=== PATIENT | male | born 1965 | race American Indian/Alaskan Native ===

== ENCOUNTER 2019-08-03 08:19 | Day surgery (SDC) | payer BC ==
[~2019-08-03 08:19] MED LIST: WATER FOR IRRIG STERILE 250 ML BOTTLE IR ONE
[2019-08-03] MEDS ORDERED: SODIUM CHLORIDE 0.9% 1000 ML 1,000 ML IV SCH (08:30)
[2019-08-03] MEDS ORDERED: PROPOFOL 200 MG/20 ML VIAL IV ONE ×2 (08:48→09:25)
--- NOTE | 2019-08-03 08:48 | Anesthesia Day of Surgery ---
Anesthesia Day of Surgery - Day of Surgery Patient Examined: Yes Patient H&P Reviewed: Yes Patient is NPO: Yes
--- NOTE | 2019-08-03 08:48 | Anesthesia Consultation ---
Anesthesia Consult and Med Hx Date of service: 08/03/19 - Airway Anesthetic Teeth Evaluation: Good ROM Head & Neck: Adequate Mental/Hyoid Distance: Adequate Mallampati Class: Class I Intubation Access Assessment: Probably Good - Pulmonary Exam CTA: Yes - Cardiac Exam Cardiac Exam: RRR - Pre-Operative Health Status ASA Pre-Surgery Classification: ASA2 Proposed Anesthetic Plan: MAC - Pulmonary Hx Smoking: No Hx Respiratory Symptoms: No - Cardiovascular System Hx Hypertension: Yes (took amlodipine this morning) - Central Nervous System CVA: No - Endocrine Hx Renal Disease: No Hx Liver Disease: No Hx Insulin Dependent Diabetes: No Hx Non-Insulin Dependent Diabetes: No Hx Thyroid Disease: No
--- NOTE | 2019-08-03 09:22 | Procedure Note ---
Date of procedure: 08/03/19 Pre-op diagnosis: Colon Polyp Screening/P/H/O Colon Polyp (Tubular Adenoma- Proximal transvers Post-op diagnosis: other (Minor,Left Colon Diverticuli/ Small,Cecal Polyp vs Adenoma) Procedure: Colonoscopy with Biopsy Anesthesia: MAC Surgeon: RAMIRO CASTILLO Estimated blood loss: minimal Pathology: list Specimen disposition: to lab Condition: stable Disposition: same day (Avoid aspirin and NSAID for 4 days; otherwise resume home medication. Follow up in 1 to 2 weeks ([phone]).)
[2019-08-03 09:35] VITALS: BP 112/66
--- NOTE | 2019-08-03 10:44 | Operative Report ---
PROCEDURE: Colonoscopy. INDICATIONS: The patient is a 54-year-old -[place] gentleman who has a prior history of a colon polyp of the tubular adenoma type from a colonoscopy done a few years ago, which was in the proximal transverse colon. Repeat colonoscopy was done to make sure there was not any recurrence of any polyps. DESCRIPTION OF PROCEDURE: Procedure was done after getting informed consent with MAC anesthesia. Initial rectal exam was unremarkable. Instrument was passed through the rectum onto the cecum, which was identified with ileocecal valve and the appendiceal orifice. In the cecum, there were 2 small raised areas noted, which may have been a lipoma versus an adenoma. Biopsy was done from one of these areas, all the area flattened out with insufflation. There was minimal bleeding from the biopsy sites and no complications associated with the biopsy. The remaining part of the cecum, ascending colon and transverse colon showed normal mucosa. There were a few minor diverticula noted in the left colon and the rectum appeared normal on the retroverted view. ASSESSMENT: Colon polyp screening, past history of colon polyp of the tubular adenoma type involving the proximal transverse colon, minor diverticula, small cecal lipoma versus adenoma with minimal bleeding from the biopsy sites and no complications associated with the procedure. Procedure was done in the GI lab with assistance of the GI lab team, which included RN, Concepcion Interiano, with the assistance of the water quality technician and also with the assistance of anesthesia. Again, there was minimal bleeding associated with polypectomy done from either a lipoma or an adenoma in the cecum. The patient will be asked to avoid aspirin and aspirin-related products for the next few days. Encouraged to take fiber supplements and follow up in the office in 1-2 weeks' time. [facility]# [id number] BENJAMÍN/ALLI
--- NOTE | 2019-08-03 22:43 | Post Anesthesia Evaluation ---
- Post Anesthesia Evaluation Patient Participated: Yes Airway Patent: Yes Stable Respiratory Function: Yes Nausea/Vomiting: No Temp > 96.8F: Yes Pain Manageable: Yes Adequeate Hydration: Yes Anesthesia Complications: No Block Receding Appropriately: Not Applicable Patient on Ventilator: No
== END 2019-08-03 08:20 | disposition home or self-care (01) ==
LOC: GIO 08:19
DX: Z12.11 Encounter for screening for malignant neoplasm of colon (principal); K57.30 Diverticulosis of large intestine without perforation or abscess without bleeding; K63.89 Other specified diseases of intestine; I10 Essential (primary) hypertension; E78.00 Pure hypercholesterolemia, unspecified; Z86.010 Personal history of colon polyps; Z85.038 Personal history of other malignant neoplasm of large intestine; Z79.899 Other long term (current) drug therapy
CPT/HCPCS: 45380; 88305; J2704; J7030

== ENCOUNTER 2019-11-02 13:38 | Outpatient (CLI) | payer BC ==
--- NOTE | 2019-11-02 14:18 | XRay Report ---
CHEST 2 VIEWS INDICATION: MID STERNAL CHEST PAIN R07.89. COMPARISON: None. FINDINGS: Support devices: None. Heart: Within normal limits. Pulmonary vasculature: Normal. Lungs/pleura: No acute air space or interstitial disease. No pneumothorax. Additional findings: None. IMPRESSION: 1. No acute findings. Signer Name: Remigio Wilkins MD Signed: 11/02/2019 2:13 PM Workstation Name: [id number]
== END 2019-11-02 13:39 | disposition home or self-care (01) ==
LOC: SPVIMAG 13:38
PROVIDERS: ATTEND Internal Medicine
DX: R07.89 Other chest pain (principal)
CPT/HCPCS: 71046

== ENCOUNTER 2021-06-16 10:53 | Day surgery (SDC) | payer BC ==
[~2021-06-16 10:53] MED LIST changes: +SODIUM CHLORIDE 0.9% 1000 ML 1,000 ML IV SCH; -WATER FOR IRRIG STERILE 250 ML BOTTLE IR ONE
--- NOTE | 2021-06-16 12:24 | Anesthesia Day of Surgery ---
Anesthesia Day of Surgery - Day of Surgery Patient Examined: Yes Patient H&P Reviewed: Yes Patient is NPO: Yes
--- NOTE | 2021-06-16 12:25 | Anesthesia Consultation ---
Anesthesia Consult and Med Hx Date of service: 06/16/21 - Airway Anesthetic Teeth Evaluation: Crowns ROM Head & Neck: Adequate Mental/Hyoid Distance: Adequate Mallampati Class: Class II Intubation Access Assessment: Good - Pre-Operative Health Status ASA Pre-Surgery Classification: ASA2 Proposed Anesthetic Plan: MAC - Pulmonary Hx Smoking: No Hx Respiratory Symptoms: No - Cardiovascular System Hx Hypertension: Yes (Off meds after weight loss) - Central Nervous System CVA: No - Gastrointestinal Hx Gastroesophageal Reflux Disease: Yes (Resolved after weight loss) - Endocrine Hx Renal Disease: No Hx Liver Disease: No Hx Insulin Dependent Diabetes: No Hx Non-Insulin Dependent Diabetes: No Hx Thyroid Disease: No - Additional Comments Anesthesia Medical History Comments: Here 07/2019
[2021-06-16] MEDS ORDERED: propofoL 200 MG/20 ML VIAL IV ONE (13:17)
--- NOTE | 2021-06-16 13:47 | Procedure Note ---
Date of procedure: 06/16/21 Pre-op diagnosis: Colon Polyp Screening/ H/o Colon Polyps Post-op diagnosis: other (No Colon Polyps now/ No Diverticular disease/ Normal, Ileal Mucosa/ Minor, Internal Hemorrhoid) Anesthesia: MAC Surgeon: RAMIRO CASTILLO Estimated blood loss: none Pathology: none Condition: stable Disposition: same day (Resume home medication and F/U in 1 to 2 weeks ([phone]).)
--- NOTE | 2021-06-16 14:04 | Operative Report ---
DATE OF SURGERY: 06/16/2021 PROCEDURE: Colonoscopy. INDICATIONS: This is a 55-year-old -[place] gentleman with an underlying history of hypertension and prior history of colon polyps. A repeat colonoscopy was done to make sure there was not any recurrence of any polyps. DESCRIPTION OF PROCEDURE: Procedure was done after getting informed consent with MAC anesthesia. Initial rectal examination was unremarkable. Instrument was passed through the rectum onto the cecum, which was identified by the ileocecal valve and appendiceal orifice. Visualization was fair to good. The terminal ileum was intubated, showed normal mucosa. The rectum was also visualized on the retroverted view and no additional pathology was noted. The scope was withdrawn to the hepatic flexure and reintroduced again without any additional findings. The cecum, ascending colon, transverse colon, descending colon, and sigmoid showed normal mucosa. There were no additional polyps, diverticular disease and the rectum showed some minor internal hemorrhoid on the retroverted view. No biopsies were done. There was no bleeding or complications associated with the procedure. ASSESSMENT: History of colon polyp, none now. No colon polyps noted. No diverticular disease noted. Minor internal hemorrhoid. Normal ileal mucosa. PLAN: To resume previous medication and have the patient follow up in the office in 1-2 weeks' time. Procedure was done in the GI lab with the assistance of the GI lab team, which included the GI nurse, the electronic bench technician and with the assistance of anesthesia. Since the patient's colonoscopy checked out good without any polyps at this time, the patient will not require another colonoscopy for several years. TID: [id number] RECEIPT: [id number] BENJAMÍN/NITIN
[2021-06-16 15:12] VITALS: BP 148/87
== END 2021-06-16 14:30 | disposition home or self-care (01) ==
LOC: GIO 10:53
DX: Z12.11 Encounter for screening for malignant neoplasm of colon (principal); K64.8 Other hemorrhoids; K63.89 Other specified diseases of intestine; I10 Essential (primary) hypertension; K21.9 Gastro-esophageal reflux disease without esophagitis; E78.00 Pure hypercholesterolemia, unspecified; Z86.010 Personal history of colon polyps; Z79.899 Other long term (current) drug therapy
CPT/HCPCS: 45378; J2704; J7030